=== PATIENT | female | born 1940 | race Caucasian/White ===

== ENCOUNTER 2016-08-01 16:41 | Emergency (ER) | payer MEDICARE, OTHER ==
--- NOTE | 2016-08-01 17:10 | ERPHSYRPT ---
- History of Present Illness Time Seen by Provider: 08/01/16 17:03 Source: patient Exam Limitations: no limitations Patient Subjective Stated Complaint: PT REPORTS FALLING ONTO LEFT SHOULDER- REPORTS SEVERE PAIN-DENIES NUMBNESS OR TINGLING-PT TAKES STEROID INJECTIONS IN SHOULDERS FOR PREVIOUS PROBLEMS Triage Nursing Assessment: PT PINK WARM ET [id number] OBVIOUS DEFORMITY- RADIAL PULSE REGULAR ET STRONG-PT REPROTS FULL SENSATION TO EXTREMITY-CAP REFILL 2 SECONDS Physician History: The patient is a 76-year-old female who presents complaining of falling onto her left shoulder, causing severe pain in her left shoulder just shortly before arrival. She has chronic pain in her right shoulder from rotator cuff tear. She has chronic pain in her left shoulder but not as severe as the right shoulder. She is right-handed. Her past medical history is significant for hypertension. Occurred: just prior to arrival Reason for Fall: tripped, fell from standing pos Injuries/Pain Location: upper extremity (left shoulder) Loss of Consciousness: no loss of consciousness Quality: sharpness Severity of Pain-Max: severe Severity of Pain-Current: severe Modifying Factors: Improves With: pain medication (ibuprofen) Associated Symptoms (Fall): denies symptoms Allergies/Adverse Reactions: Sulfa (Sulfonamide Antibiotics) Allergy (Intermediate, Verified 08/01/16 16:52) Hives Home Medications: Enalapril Maleate 10 mg [Vasotec 10 MG] 10 mg PO DAILY 08/01/16 [History] Loratadine 10 mg [Claritin 10 mg] 10 mg PO DAILY 08/01/16 [History] Hx Tetanus, Diphtheria Vaccination/Date Given: No Hx Influenza Vaccination/Date Given: Yes Hx Pneumococcal Vaccination/Date Given: Yes Immunizations Up to Date: No - Review of Systems Constitutional: No Fever, No Chills Eyes: No Symptoms Ears, Nose, & Throat: No Symptoms Respiratory: No Cough, No Dyspnea Cardiac: No Chest Pain, No Edema, No Syncope Abdominal/Gastrointestinal: No Abdominal Pain, No Nausea, No Vomiting, No Diarrhea Genitourinary Symptoms: No Dysuria Musculoskeletal: Fall, Injury Skin: No Rash Neurological: No Dizziness, No Focal Weakness, No Sensory Changes Psychological: No Symptoms Endocrine: No Symptoms Hematologic/Lymphatic: No Symptoms Immunological/Allergic: No Symptoms All Other Systems: Reviewed and Negative - Past Medical History Pertinent Past Medical History: Yes Cardiac History: Hypertension Respiratory History: Asthma - Past Surgical History Past Surgical History: Yes Musculoskeletal: Orthopedic Surgery - Social History Smoking Status: Never smoker Exposure to second hand smoke: No Drug Use: none Patient Lives Alone: No - Nursing Vital Signs Nursing Vital Signs: Initial Vital Signs Temperature 98.1 F Temperature Source Oral Pulse Rate 90 Respiratory Rate 18 Blood Pressure [Right Arm] 168/88 Pain Intensity 10 - Dushore Coma Score Best Eye Response (Dushore): (4) open spontaneously Best Verbal Response (Dushore): (5) oriented Best Motor Response (Satya): (6) obeys commands Satya Total: 15 - Physical Exam General Appearance: moderate distress Head Injury: no evidence of injury Eye Exam: PERRL/EOMI ENT Exam: airway nml Neck Exam: normal inspection, No tenderness Respiratory/Chest Exam: normal breath sounds, No chest tenderness, No respiratory distress Cardiovascular Exam: normal heart sounds, regular rate/rhythm Gastrointestinal Exam: soft, No tenderness, No distention, No guarding, No ecchymosis Rectal Exam: not done Back Exam: normal inspection, No vertebral tenderness Extremity Exam: limited range of motion, evidence of injury, tenderness, other ( Examination of the left shoulder reveals limited range of motion. The patient is unable to extend at the left shoulder due to severe pain. She is unable to rotate internally due to significant pain. Outward rotation causes no pain.) Neurologic Exam: alert, oriented x 3, cooperative, sensation nml, No motor deficits Skin Exam: normal color, warm, dry SpO2 Interpretation: normal SpO2: 96 Oxygen Delivery: Room Air - Radiology Exams Left Humerus X-ray Interpretation: Teleradiologist Report, No Fracture (per Dr Alfaro) Left Shoulder X-ray Interpretation: Teleradiologist Report, No Fracture (per Dr Alfaro) Ordered Tests: Active Orders 24 hr Category Date Time Status HUMERUS Stat Exams 08/01/16 17:15 Taken SHOULDER Stat Exams 08/01/16 17:15 Taken Medication Summary Discontinued Medications Generic Name Dose Route Start Last Admin Trade Name Freq PRN Reason Stop Dose Admin Morphine Sulfate 4 mg 08/01/16 17:14 08/01/16 17:24 Morphine Sulfate 10 Mg/Ml IM 08/01/16 17:15 4 mg STAT ONE Administration Morphine Sulfate Confirm 08/01/16 17:21 Morphine Sulfate 4 Mg Inj Administered 08/01/16 17:22 Dose 4 mg .ROUTE .STK-MED ONE - Departure Time of Disposition: 19:05 Departure Disposition: Home Clinical Impression: Shoulder injury Condition: Stable Critical Care Time: No Additional Instructions: You have injured her left shoulder. There are no broken bones. However, you may have injured your rotator cuff. In the emergency room you were given 2 injections of morphine 4 mg each. You've been sent home with 2 Tylenol 3 tablets which you can take 1 or 2 every 4-6 hours as needed for pain. He will also have a prescription for Tylenol 3 to take 1-2 tablets every 4-6 hours as needed for pain. Follow-up in one week if no improvement. Prescriptions: Codeine Phosphate/APAP #3 [Tylenol #3 Tablet] 1 tab PO Q4-6HPRN PRN #10 tablet PRN Reason: Pain
[2016-08-01] MEDS ORDERED: MORPHINE SULFATE 10 MG/ML IM ONE (17:14)
[2016-08-01] MEDS ORDERED: MORPHINE SULFATE 4 MG INJ ONE (17:21)
[2016-08-01 18:31] VITALS: PULSE 90
[2016-08-01] MEDS ORDERED: MORPHINE SULFATE 4 MG INJ IM ONE (19:08)
[2016-08-01] MEDS ORDERED: Tylenol #3 Tablet PO ONE (19:10)
[2016-08-01] MEDS ORDERED: Tylenol #3 Tablet ONE (19:14)
[2016-08-01] MEDS ORDERED: MORPHINE SULFATE 10 MG/ML IV ONE (19:15)
[2016-08-01] MEDS ORDERED: MORPHINE SULFATE 10 MG/ML ONE (19:19)
[2016-08-01 19:27] VITALS: BP 150/91; O2SAT 94
--- NOTE | 2016-08-01 22:21 | XRAY ---
Indication: Pain following fall. Comparison: None 3 views of the left shoulder demonstrate mild osteopenia, moderate AC degenerative arthropathy, and greater tuberosity spurring. No other bony, articular, or soft tissue abnormalities.
--- NOTE | 2016-08-01 22:21 | XRAY ---
Indication: Pain following fall. Comparison: None 2 views of the left humerus demonstrate mild osteopenia, moderate AC degenerative arthropathy, lateral epicondyle spurring, and left lung base atelectasis/scarring. No other bony, articular, or soft tissue abnormalities.
== END 2016-08-01 19:42 | disposition home or self-care (01) ==
LOC: ED 16:41
DX: S49.92XA Unspecified injury of left shoulder and upper arm, initial encounter (principal); M25.512 Pain in left shoulder; W01.0XXA Fall on same level from slipping, tripping and stumbling without subsequent striking against object, initial encounter; I10 Essential (primary) hypertension; J45.909 Unspecified asthma, uncomplicated
CPT/HCPCS: 73030; 73060; 96372; 99284; J2270; A9270-GY

== ENCOUNTER 2023-05-25 11:09 | Day surgery (SDC) | payer MEDICARE, OTHER ==
[2023-05-25] MEDS ORDERED: LIDOCAINE HCL 2% 100 MG/5 ML IJ ONE (11:10)
[2023-05-25] MEDS ORDERED: Decadron 4 MG INJ IV ONE (11:10)
[2023-05-25] MEDS ORDERED: Lactated Ringers 1,000 ML IV ONE (13:59)
[2023-05-25] MEDS ORDERED: DIPRIVAN 200 MG/20 ML IV ONE (14:11)
--- NOTE | 2023-05-25 16:33 | XRAY ---
Indication: Left C2-C4 MBB. Intraoperative fluoroscopy provided for 20 seconds. 2 digital spot image submitted for interpretation demonstrates posterior needle tips projecting over the expected left C2-C4 nerve roots. Correlate with intraoperative findings/report.
--- NOTE | 2023-05-25 16:39 | XRAY ---
20 seconds of fluoroscopy was used in surgery for a left C2-C4 MBB.
== END 2023-05-25 14:45 | disposition home or self-care (01) ==
LOC: SDC-PAIN 11:09
PROVIDERS: ATTEND Psychiatry & Neurology Pain Medicine
DX: M47.812 Spondylosis without myelopathy or radiculopathy, cervical region (principal)
CPT/HCPCS: 64490; 64491; 72040; 77002; J1100; J2704

== ENCOUNTER 2023-06-22 11:31 | Day surgery (SDC) | payer MEDICARE, OTHER ==
[2023-06-22] MEDS ORDERED: Decadron 4 MG INJ IV ONE (11:32)
[2023-06-22] MEDS ORDERED: BUPIVACAINE 0.5% VIAL IJ ONE (11:32)
[2023-06-22] MEDS ORDERED: Lactated Ringers 1,000 ML IV ONE (12:46)
[2023-06-22] MEDS ORDERED: DIPRIVAN 200 MG/20 ML IV ONE (13:08)
--- NOTE | 2023-06-22 14:42 | XRAY ---
Indication: Left C2-C4 MBB. Intraoperative fluoroscopy provided for 18 seconds. 3 digital spot images submitted for interpretation demonstrates posterior needle tips projecting over the expected left C2-C4 nerve roots. Correlate with intraoperative findings/report.
--- NOTE | 2023-06-22 15:10 | XRAY ---
18 seconds of fluoroscopy was used in surgery for a left C2-C4 MBB.
== END 2023-06-22 13:36 | disposition home or self-care (01) ==
LOC: SDC-PAIN 11:31
PROVIDERS: ATTEND Psychiatry & Neurology Pain Medicine
DX: M47.812 Spondylosis without myelopathy or radiculopathy, cervical region (principal)
CPT/HCPCS: 64490; 64491; 72040; 77002; J1100; J2704

== ENCOUNTER 2023-07-27 12:30 | Day surgery (SDC) | payer MEDICARE, OTHER ==
[2023-07-27] MEDS ORDERED: Decadron 4 MG INJ IV ONE (12:31)
[2023-07-27] MEDS ORDERED: BUPIVACAINE 0.5% VIAL IJ ONE (12:31)
[2023-07-27] MEDS ORDERED: LIDOCAINE HCL 1% 50 MG/5 ML VL PF IJ ONE (12:31)
[2023-07-27] MEDS ORDERED: DIPRIVAN 200 MG/20 ML IV ONE (14:49)
[2023-07-27] MEDS ORDERED: Lactated Ringers 1,000 ML IV ONE (14:59)
--- NOTE | 2023-07-27 16:42 | XRAY ---
Indication: Left C2-C4 RFA. Intraoperative fluoroscopy provided for 31 seconds. 4 digital spot image submitted for interpretation demonstrates posterior needle tips projecting over the expected left C2-C4 nerve roots. Correlate with intraoperative findings/report.
--- NOTE | 2023-07-27 17:06 | XRAY ---
31 seconds of fluoroscopy was used in surgery for a left C2-C4 RFA.
== END 2023-07-27 15:33 | disposition home or self-care (01) ==
LOC: SDC-PAIN 12:30
PROVIDERS: ATTEND Psychiatry & Neurology Pain Medicine
DX: M47.812 Spondylosis without myelopathy or radiculopathy, cervical region (principal)
CPT/HCPCS: 64633; 64634; 72040; 77002; 99100; J1100; J2001; J2704

== ENCOUNTER 2023-11-09 11:56 | Day surgery (SDC) | payer MEDICARE, OTHER ==
[2023-11-09] MEDS ORDERED: Xylocaine-Mpf 2% 5 Ml Vial IJ ONE (11:57)
[2023-11-09] MEDS ORDERED: Depo-Medrol 40 MG/ML IM ONE (11:57)
[2023-11-09] MEDS ORDERED: DIPRIVAN 200 MG/20 ML IV ONE (14:04)
[2023-11-09] MEDS ORDERED: Lactated Ringers 1,000 ML IV ONE (14:35)
--- NOTE | 2023-11-09 15:15 | XRAY ---
Indication: Bilateral L4-S1 MBB. Intraoperative fluoroscopy provided for 12 seconds. Single digital spot image submitted for interpretation demonstrates posterior needle tips projecting over expected left and right L4-S1 nerve roots. Correlate with intraoperative findings/report. Incidental multilevel spinous process fusion hardware.
--- NOTE | 2023-11-09 15:19 | XRAY ---
12 seconds of fluoroscopy was used in surgery for a bilateral L4-S1 MBB.
== END 2023-11-09 14:39 | disposition home or self-care (01) ==
LOC: SDC-PAIN 11:56
PROVIDERS: ATTEND Psychiatry & Neurology Pain Medicine
DX: M47.816 Spondylosis without myelopathy or radiculopathy, lumbar region (principal)
CPT/HCPCS: 64493; 64494; 72020; 77002; J2704

== ENCOUNTER 2023-12-14 11:29 | Day surgery (SDC) | payer MEDICARE, OTHER ==
[2023-12-14] MEDS ORDERED: Depo-Medrol 40 MG/ML IM ONE (11:30)
[2023-12-14] MEDS ORDERED: BUPIVACAINE 0.5% VIAL IJ ONE (11:30)
[2023-12-14] MEDS ORDERED: DIPRIVAN 200 MG/20 ML IV ONE (12:49)
[2023-12-14] MEDS ORDERED: Lactated Ringers 1,000 ML IV ONE (14:19)
--- NOTE | 2023-12-14 14:32 | XRAY ---
Indication: Bilateral L4-S1 MBB. Intraoperative fluoroscopy provided for 7 seconds. Single digital spot image submitted for interpretation demonstrates posterior needle tips projecting over the expected left and right L4-S1 nerve roots. Correlate with intraoperative findings/report. Incidental multilevel spinous process fusion hardware.
--- NOTE | 2023-12-14 14:38 | XRAY ---
7 seconds of fluoroscopy was used in surgery for a bilateral L4-S1 MBB.
== END 2023-12-14 13:24 ==
LOC: SDC-PAIN 11:29
PROVIDERS: ATTEND Psychiatry & Neurology Pain Medicine
DX: M47.816 Spondylosis without myelopathy or radiculopathy, lumbar region (principal); M47.817 Spondylosis without myelopathy or radiculopathy, lumbosacral region
CPT/HCPCS: 64493; 64494; 72020; 77002; J2704

== ENCOUNTER 2024-01-11 13:10 | Day surgery (SDC) | payer MEDICARE, OTHER ==
[2024-01-11] MEDS ORDERED: BUPIVACAINE 0.5% VIAL IJ ONE (13:11)
[2024-01-11] MEDS ORDERED: LIDOCAINE HCL 1% AMPUL 5 ML IJ ONE (13:11)
[2024-01-11] MEDS ORDERED: Depo-Medrol 40 MG/ML IM ONE (13:11)
[2024-01-11] MEDS ORDERED: DIPRIVAN 200 MG/20 ML IV ONE (14:05)
[2024-01-11] MEDS ORDERED: Lactated Ringers 1,000 ML IV ONE (14:20)
--- NOTE | 2024-01-11 16:38 | XRAY ---
Indication: Right L4-S1 RFA. Intraoperative fluoroscopy provided for 17 seconds. 6 digital spot image submitted for interpretation demonstrates posterior needle tips projecting over the expected right L4-S1 nerve roots. Correlate with intraoperative findings/report. Incidental incompletely visualized multilevel spinous process fusion hardware.
--- NOTE | 2024-01-11 16:56 | XRAY ---
17 seconds of fluoroscopy was used in surgery for a right L4-S1 RFA.
== END 2024-01-11 14:48 | disposition home or self-care (01) ==
LOC: SDC-PAIN 13:10
PROVIDERS: ATTEND Psychiatry & Neurology Pain Medicine
DX: M47.816 Spondylosis without myelopathy or radiculopathy, lumbar region (principal)
CPT/HCPCS: 64635; 64636; 72100; 77002; 99100; J2704

== ENCOUNTER 2024-01-25 10:50 | Day surgery (SDC) | payer MEDICARE, OTHER ==
[2024-01-25] MEDS ORDERED: BUPIVACAINE 0.5% VIAL IJ ONE (10:51)
[2024-01-25] MEDS ORDERED: LIDOCAINE HCL 1% AMPUL 5 ML IJ ONE (10:51)
[2024-01-25] MEDS ORDERED: Depo-Medrol 40 MG/ML IM ONE (10:51)
[2024-01-25] MEDS ORDERED: DIPRIVAN 200 MG/20 ML IV ONE (12:32)
--- NOTE | 2024-01-25 14:10 | XRAY ---
Indication: Left L4-S1 RFA. Intraoperative fluoroscopy provided for 11 seconds. 4 digital spot image submitted for interpretation demonstrates posterior needle tips projecting over the expected left L4-S1 nerve roots. Correlate with intraoperative findings/report. Incidental incompletely visualized multilevel lumbar spinous process fusion hardware
--- NOTE | 2024-01-25 14:12 | XRAY ---
11 seconds of fluoroscopy was used in surgery for a left L4-S1 RFA.
== END 2024-01-25 13:07 | disposition home or self-care (01) ==
LOC: SDC-PAIN 10:50
PROVIDERS: ATTEND Psychiatry & Neurology Pain Medicine
DX: M47.817 Spondylosis without myelopathy or radiculopathy, lumbosacral region (principal)
CPT/HCPCS: 64635; 64636; 72100; 77002; J2704

== ENCOUNTER 2024-05-23 12:47 | Day surgery (SDC) | payer MEDICARE, OTHER ==
[2024-05-23] MEDS ORDERED: BUPIVACAINE 0.5% VIAL IJ ONE (12:48)
[2024-05-23] MEDS ORDERED: methylPREDNISolone acetate IM ONE (12:48)
[2024-05-23] MEDS ORDERED: propofoL IV ONE (13:49)
--- NOTE | 2024-05-23 14:41 | XRAY ---
Indication: Bilateral SI joint injection. Intraoperative fluoroscopy provided for 21 seconds. 3 digital spot image obtained prone submitted for interpretation demonstrates posterior needle tips projecting over left/right SI joints. Small amount of contrast injected for needle tip placement. Correlate with intraoperative findings/report.
[2024-05-23] MEDS ORDERED: Sodium Chloride 0.9% 250 ML 250 ML IV ONE (14:51)
--- NOTE | 2024-05-23 14:57 | XRAY ---
21 seconds of fluoroscopy was used in surgery for a bilateral sacroiliac joint injection.
== END 2024-05-23 14:15 | disposition home or self-care (01) ==
LOC: SDC-PAIN 12:47
PROVIDERS: ATTEND Psychiatry & Neurology Pain Medicine
DX: M46.1 Sacroiliitis, not elsewhere classified (principal)
CPT/HCPCS: 27096; 72202; 77002; 99100; J1010; J2704; Q9966